=== PATIENT | female | born 1975 | race Caucasian/White ===

== ENCOUNTER 2017-07-26 18:46 | Inpatient (IN) | payer BC ==
[~2017-07-26] VITALS: Ht 182.9 cm; Wt 76.2 kg
[2017-07-26] MEDS ORDERED: IV NORMAL SALINE 1000ML BAG 1,000 ML IV SCH (19:19)
[2017-07-26 19:27] LABS: BASO # 0.1 x10^3/uL (0.0-0.2); BASO % 1 % (0-3); EOS % 1 % (0-3); HEMATOCRIT 52.1 % (36.0-47.0); HEMOGLOBIN 17.9 g/dL (12.0-15.5); LYMPH # 3.4 x10^3/uL (1.0-4.8); LYMPH % 31 % (24-48); MEAN CORPUSCULAR HEMOGLOBIN 30 pg (25-35); MEAN CORPUSCULAR HGB CONC 34 g/dL (31-37); MEAN CORPUSCULAR VOLUME 87 fL (79-100); MONO % 7 % (0-9); NEUT % 60 % (31-73); PLATELET COUNT 337 x10^3/uL (140-400); RED BLOOD COUNT 5.98 x10^6/uL (3.50-5.40); RED CELL DISTRIBUTION WIDTH 12.8 % (11.5-14.5); WHITE BLOOD COUNT 10.9 x10^3/uL (4.0-11.0)
[2017-07-26] MEDS ORDERED: 0.9 % SODIUM CHLORIDE 10 ML DISP.SYRIN. IV PRN (19:30)
[2017-07-26] MEDS ORDERED: FAMOTIDINE 20 MG/2 ML VIAL IVP ONE (19:30)
--- NOTE | 2017-07-26 19:32 | PHYS DOC ---
Past Medical History Past Medical History: Diabetes-Type II Past Surgical History: Cholecystectomy, Other Additional Past Surgical Histo: RIGHT FOOT, D&C Smoking: Cigarettes, Quit Less Than 1 Year Alcohol Use: Occasionally Drug Use: None Adult General Chief Complaint Chief Complaint: ABDOMINAL PAIN [facility] HPI She Is a pleasant 42-year-old otherwise healthy female with a history of type 1 diabetes on no medications because she cannot afford them presents with nonbilious nonbloody emesis going on for last 2-3 days. With progressive abdominal pain epigastric region with no radiation to the back over the last 2 days. She denies any direct trauma, denies any black tarry stools or black emesis. Patient says it was bile initially but now is going dark and brown. Patient denies any sick contacts she has had recent antibiotics in the last 6 weeks. She was seen at another hospital facility and diagnosed with acute cast denies no placed on 2 antibiotics for the symptoms. Since that she is also had a CAT scan that demonstrated "" gastroparesis. Patient denies being , patient has not no UTI symptoms, or vaginal bleeding or discharge. She further denies any history of sexually transmitted diseases. Patient's pain is a moderate 8 of 10 at this time with no relation to the back or lower abdomen. She denies any shortness of breath, fevers, chills, cough. Differential diagnosis on arrival Acute pancreatitis. Appendicitis. Acute hepatitis. Peptic ulcer disease. Nonulcer dyspepsia. Irritable bowel disease. Functional gallbladder disorder. Sphincter of Oddi dysfunction. Diseases of the right kidney. Right-sided pneumonia. Jmgs-Dcwm-Vvcujp syndrome Subhepatic or intraabdominal abscess. Perforated viscus. Cardiac ischemia. Black spider envenomation UTI, pyonephritis, kidney stone, abdominal aneurysm, Review of Systems Review of Systems Constitutional: Denies fever or chills [] Eyes: Denies change in visual acuity, redness, or eye pain [] HENT: Denies nasal congestion or sore throat [] Respiratory: Denies cough or shortness of breath [] Cardiovascular: No additional information not addressed in HPI [] GI: He has had significant abdominal pain with nausea and vomiting but no bloody stools or diarrhea. : Denies dysuria or hematuria [] Musculoskeletal: Denies back pain or joint pain [] Integument: Denies rash or skin lesions [] Neurologic: Denies headache, focal weakness or sensory changes [] Endocrine: Denies polyuria or polydipsia [] All other systems were reviewed and found to be within normal limits, except as documented in this note. Allergies Allergies Allergies Coded Allergies Type Severity Reaction Last Updated Verified hydrocodone Allergy Intermediate 07/26/17 Yes iodine Allergy Intermediate 07/26/17 Yes Physical Exam Physical Exam Vital signs recorded the chart patient noted to be tachycardic and hypertensive. Constitutional: Well developed, well nourished, and is pale she is not diaphoretic she is mildly tachypnea and very anxious she is nontoxic but uncomfortable HENT: Normocephalic, atraumatic, bilateral external ears normal, oropharynx dry mucous membranes no oral exudates, nose normal. [] Eyes: PERRLA, EOMI, conjunctiva normal, no discharge. [] Neck: Normal range of motion, no tenderness, supple, no stridor. [] Cardiovascular: Rate is elevated, no murmurs, rubs or rubs, Lungs & Thorax: Bilateral breath sounds clear to auscultation [] Abdomen: Increased bowel sounds soft mild tenderness to palpation in the epigastric region with no masses no pulsatile masses no Chew's or McBurney's point tenderness palpation agree Sandra sign[] Skin: Warm, dry, no erythema, no rash. [] Back: No tenderness, no CVA tenderness. [] Extremities: No tenderness, no cyanosis, no clubbing, ROM intact, no edema. [] Neurologic: Alert and oriented X 3, normal motor function, normal sensory function, no focal deficits noted. [] Psychologic: Seems somewhat anxious admission seemed to be intact. Current Patient Data Vital Signs Vital Signs Date Time Temp Pulse Resp B/P (MAP) Pulse Ox O2 Delivery O2 Flow Rate FiO2 07/26/17 19:02 97.9 106 20 193/82 (119) 99 Room Air 97.9 Lab Values Laboratory Tests Test 07/26/17 19:13 Glucose (Fingerstick) 194 mg/dL (70-99) H EKG EKG [] Radiology/Procedures Radiology/Procedures [] Course & Med Decision Making Course & Med Decision Making Pertinent Labs and Imaging studies reviewed. (See chart for details) [] Dragon Disclaimer Dragon Disclaimer This electronic medical record was generated, in whole or in part, using a voice recognition dictation system. BROVONT,DOTTIE A MD Jul 26, 2017 19:32
[2017-07-26 19:47] LABS: CALCIUM 9.3 mg/dL (8.5-10.1); CREATININE 0.5 mg/dL (0.6-1.0); GFR 135.3; POTASSIUM 3.4 mmol/L (3.5-5.1)
[2017-07-26 19:52] LABS: ALBUMIN 4.4 g/dL (3.4-5.0); ALBUMIN/GLOBULIN RATIO 1.2 (1.0-1.7); TOTAL BILIRUBIN 3.9 mg/dL (0.2-1.0)
[2017-07-26] MEDS: MORPHINE SULFATE 4 MG/ML DISP.SYRIN. IV/SQ PRN (19:56)
[2017-07-26 20:00] LABS: CREATINE KINASE 25 U/L (26-192)
[2017-07-26 20:01] LABS: CKMB MASS < 0.5 ng/mL (0.0-3.6)
[2017-07-26 20:32] LABS: BILIRUBIN,URINE SMALL (NEG); GLUCOSE,URINE 250 mg/dL (NEG); NITRITE,URINE NEGATIVE (NEG); PROTEIN,URINE 100 mg/dL (NEG-TRACE)
[2017-07-26 20:40] LABS: BACTERIA,URINE MODERATE /HPF (0-FEW); SQUAMOUS EPITHELIAL CELL,UR MANY /LPF
[2017-07-26] MEDS ORDERED: HYDROmorphone 2 MG/ML VIAL IV ONE (20:45)
[2017-07-26] MEDS ORDERED: ONDANSETRON PF 4 MG/2 ML VIAL. IV ONE (20:45)
--- NOTE | 2017-07-26 21:38 | RAD ---
CT abdomen and pelvis without contrast 07/26/2017 CLINICAL INDICATION: Vomiting and generalized abdominal pain. COMPARISON: None. TECHNIQUE: Multiple CT images of the abdomen and pelvis were obtained without contrast. *One or more of the following individualized dose reduction techniques were utilized for this examination: 1. Automated exposure control. 2. Adjustment of the mA and/or kV according to patient size. 3. Use of iterative reconstruction technique. FINDINGS: Heart size is normal. The visualized lung bases are clear. Evaluation of the solid abdominal pelvic viscera, lymphadenopathy and vasculature is limited in the absence of intravenous contrast. Unenhanced contours of the liver, spleen, adrenal glands, pancreas and kidneys are grossly unremarkable apart from a 2 mm nonobstructive calculus in the inferior pole left kidney. Prior cholecystectomy. Abdominal aorta is normal in caliber. Small and large bowel loops are normal in caliber without obstruction. Moderate zaman colonic diverticulosis without diverticulitis. Appendix is normal in appearance. No abdominal free fluid. No pneumoperitoneum. Urinary bladder and uterus are unremarkable. No pelvic free fluid. There are no destructive osseous lesions. IMPRESSION: 1. No noncontrast evidence of acute abdominopelvic process, bowel obstruction or ascites. 2. Pancolonic diverticulosis without diverticulitis. 3. Tiny, 2 mm nonobstructive left renal calculus. Electronically signed by: Nam Bai MD (07/26/2017 9:34 PM) [facility]
[2017-07-26] MEDS ORDERED: MORPHINE SULFATE 2 MG/ML DISP.SYRIN. IV PRN (22:00)
[2017-07-26] MEDS ORDERED: DEXTROSE 50% 25 GM / 50ML DISP.SYRIN. IV PRN (22:00)
[2017-07-26] MEDS ORDERED: IV NORMAL SALINE 1000ML BAG 1,000 ML IV ONE ×2 (22:00)
[2017-07-27] VITALS (7 sets, daily range): BP systolic 104–131; BP diastolic 60–69
[2017-07-27] MEDS: ONDANSETRON PF 4 MG/2 ML VIAL. IV PRN ×3 (00:42→19:30)
[2017-07-27 04:57] LABS: CALCIUM 8.2 mg/dL (8.5-10.1); CREATININE 0.4 mg/dL (0.6-1.0)
--- NOTE | 2017-07-27 07:06 | EKG ---
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
[2017-07-27] MEDS: INSULIN ASPART 300 UNITS/3 ML INSULN.PEN SQ SCH ×3 (08:00→17:54)
[2017-07-27] MEDS: MORPHINE SULFATE 4 MG/ML DISP.SYRIN. IV/SQ PRN (10:19)
[2017-07-27] MEDS ORDERED: oxyCODONE IR 5 MG TABLET PO PRN (18:00)
--- NOTE | 2017-07-27 18:18 | HP ---
ADMIT DATE: 07/26/2017 CHIEF COMPLAINT: Nausea, vomiting, DKA. HISTORY OF PRESENT ILLNESS: The patient is a 42-year-old woman with longstanding history of diabetes mellitus, but unable to afford her medications and off insulin for the past 2 years, who presented to the Emergency Room with nausea, vomiting and epigastric pain. She relates that her GI symptoms actually started even before Halloween. At that time, she actually ended up in [facility] with nausea, retching and abdominal pain. She was told at that time she had some type of GI infection and was given antibiotics. Recommendations were for her to be transported to [facility] for care, but patient declined due to cost of the ambulance ride. She states she did fairly well in the interim, but then got worse in the past week once again with nausea, retching, being completely unable to keep anything down including liquids. She denies any fevers, chills, has abdominal pain in the epigastric area, sharp and stabbing type. Vomitus initially was food, then bilious and later coffee brown suspicious for bleed. In the Emergency Room, she was found with DKA and admitted for further management. PAST MEDICAL HISTORY: Diabetes mellitus, diabetic neuropathy, cholecystectomy, status post D and C. FAMILY HISTORY: No other members with diabetes. SOCIAL HISTORY: Lives with her children. 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 Quit smoking in April of this year. Drinks alcohol only occasionally. Denies any drug use. ALLERGIES: HYDROCODONE, IODINE. MEDICATIONS: None at home. REVIEW OF SYSTEMS: Positive as per HPI. She denies any symptoms in rest of organ system review. PHYSICAL EXAMINATION: VITAL SIGNS: From today show a blood pressure of 109/61, heart rate of 84, respiratory rate at 18. She is afebrile. GENERAL: This is a 42-year-old well-nourished woman, alert and oriented, in no acute distress. HEENT: Shows no scleral icterus. NECK: Supple. LUNGS: Clear to auscultation bilaterally. HEART: Has regular rate and rhythm. ABDOMEN: Has positive bowel sounds, tenderness to palpation in the epigastric area. EXTREMITIES: Show no edema. SKIN: Warm, soft and dry without any rash. LABORATORY DATA: CBC with a WBC of 10.9, hemoglobin 17.9 and platelets of 337. Chemistries with BUN and creatinine of 12 and 0.4. Normal electrolytes, glucose at 171. Ketones in urine positive at greater than 80. IMAGING: CT of the abdomen and pelvis showed noncontrast evidence of acute abdominopelvic process, bowel obstruction or ascites. ASSESSMENT AND PLAN: The patient is a 42-year-old uncontrolled diabetic of insulin x 2 years, who now presents with what I suspect is an additional complication of her diabetes, gastroparesis. I discussed this with her. She apparently had been told this at her previous visit in [facility]. Difficult part, however, will be trying to find medications for her that are relatively cheap and effective. Although, she does have insurance through her job, copays are difficult to afford on her budget. For now, symptoms appear to be controlled. We will monitor her labs. Insulin currently fairly well controlled on sliding scale. The patient appears to be polycythemic. Suspect this is secondary to possibly dehydration. We will monitor her CBC. Risk stratified for other risk factors for cardiovascular disease as well with lipid profile. Blood pressure and heart rate appear well controlled. DAIN MAHONEY MD DR: MARIELLA/jean JOB#: [id number] / [id number] RAMONE
[2017-07-27] MEDS ORDERED: ONDANSETRON PF 4 MG/2 ML VIAL. IV PRN (19:45)
[2017-07-27] MEDS ORDERED: INSULIN DETEMIR 300 UNITS/3 ML INSULN.PEN. SQ SCH (21:00)
[2017-07-28 03:00] VITALS: BP 121/68
[2017-07-28 04:19] LABS: BASO % 1 % (0-3); EOS % 2 % (0-3); HEMATOCRIT 42.1 % (36.0-47.0); HEMOGLOBIN 14.7 g/dL (12.0-15.5); LYMPH # 3.2 x10^3/uL (1.0-4.8); LYMPH % 49 % (24-48); MEAN CORPUSCULAR HEMOGLOBIN 30 pg (25-35); MEAN CORPUSCULAR HGB CONC 35 g/dL (31-37); MEAN CORPUSCULAR VOLUME 86 fL (79-100); MONO % 7 % (0-9); NEUT % 41 % (31-73); PLATELET COUNT 233 x10^3/uL (140-400); RED BLOOD COUNT 4.89 x10^6/uL (3.50-5.40); RED CELL DISTRIBUTION WIDTH 12.7 % (11.5-14.5); WHITE BLOOD COUNT 6.5 x10^3/uL (4.0-11.0)
[2017-07-28 04:39] LABS: CALCIUM 8.1 mg/dL (8.5-10.1); CREATININE 0.3 mg/dL (0.6-1.0)
[2017-07-28 04:42] LABS: POTASSIUM 2.7 mmol/L (3.5-5.1)
[2017-07-28 07:00] VITALS: BP 114/77
[2017-07-28] MEDS ORDERED: POTASSIUM CHLORIDE 20 MEQ TABLET.ER. PO ONE ×2 (08:00→12:00)
[2017-07-28] MEDS: INSULIN ASPART 300 UNITS/3 ML INSULN.PEN SQ SCH ×2 (08:38→12:26)
[2017-07-28 11:00] VITALS: BP 119/76
[2017-07-28] MEDS ORDERED: INSU100I27 SQ (12:36)
[2017-07-28] MEDS ORDERED: LOVA20TA2 PO (13:09)
[2017-07-28] MEDS ORDERED: ASPI-482 PO (13:09)
[2017-07-28] MEDS ORDERED: LISI-338 PO (13:09)
[2017-07-28] MEDS ORDERED: INSU100I17 SQ (13:09)
[2017-07-28 15:00] VITALS: BP 131/79
[2017-07-28] MEDS ORDERED: INSULIN ASPART 300 UNITS/3 ML INSULN.PEN SQ SCH (17:00)
--- NOTE | 2017-07-28 22:58 | DS ---
DATE OF DISCHARGE: 07/28/2017 CHIEF COMPLAINT: Nausea, vomiting, DKA. HOSPITAL COURSE: The patient is a 42-year-old woman with longstanding history of diabetes mellitus, which she neglected over the past year citing financial constraints. She presented with a 4-week history of nausea and vomiting and was found in DKA. She was given insulin to control her blood sugar and with infusions, her acidosis resolved fairly quickly. She was started on regular as well as long-acting insulin, which was adjusted during her hospitalization. She was discharged on same regimen with instructions for sliding scale for self-administration. To control other risk factors associated with diabetes, she was given prescriptions for lisinopril as well as lovastatin and baby aspirin. Because of her financial constraints, medications were chosen to allow minimum copay. PHYSICAL EXAMINATION: VITAL SIGNS: Show a blood pressure of 131/79, heart rate of 90, respiratory rate at 20, no fevers. GENERAL: Alert and oriented, no acute distress. LUNGS: Clear. HEART: Regular rate and rhythm. ABDOMEN: Positive bowel sounds, soft, nontender. EXTREMITIES: No edema. DISCHARGE DIAGNOSES: Diabetic ketoacidosis, possible gastroparesis. DISCHARGE DISPOSITION: To home. DISCHARGE CONDITION: Improved. DISCHARGE MEDICATIONS: Please refer to MAR. DISCHARGE INSTRUCTIONS: The patient should follow up with PCP SADIE for further monitoring of blood sugars and other complications of diabetes. DAIN MAHONEY MD DR: MARIELLA/nts JOB#: [id number] / [id number] RAMONE
== END 2017-07-28 16:00 | disposition home or self-care (01) | DRG 637 ==
LOC: ER 18:46 → 6 SOUTH 21:50
PROVIDERS: ADMIT Internal Medicine; ATTEND Internal Medicine
DX: E10.10 Type 1 diabetes mellitus with ketoacidosis without coma (principal); J18.9 Pneumonia, unspecified organism; K85.90 Acute pancreatitis without necrosis or infection, unspecified; K31.84 Gastroparesis; E10.43 Type 1 diabetes mellitus with diabetic autonomic (poly)neuropathy; E24.9 Cushing's syndrome, unspecified; B17.9 Acute viral hepatitis, unspecified; N39.0 Urinary tract infection, site not specified; I25.9 Chronic ischemic heart disease, unspecified; I71.4 Abdominal aortic aneurysm, without rupture; K27.9 Peptic ulcer, site unspecified, unspecified as acute or chronic, without hemorrhage or perforation; K37 Unspecified appendicitis; K57.30 Diverticulosis of large intestine without perforation or abscess without bleeding; K58.9 Irritable bowel syndrome, unspecified; K82.9 Disease of gallbladder, unspecified; N20.0 Calculus of kidney; Z87.891 Personal history of nicotine dependence; Z79.4 Long term (current) use of insulin; Z90.49 Acquired absence of other specified parts of digestive tract; Z88.5 Allergy status to narcotic agent; Z91.041 Radiographic dye allergy status
CPT/HCPCS: 36415; 74176; 80048; 80053; 81001; 81025; 82553; 82962; 83690; 84484; 85025; 87086; 93005; J1170; J1815; J2270; J2405; J7030; S0028

== ENCOUNTER 2020-01-20 01:18 | Inpatient (IN) | payer BC ==
[~2020-01-20] VITALS: Ht 182.9 cm; Wt 84.3 kg
[~2020-01-20 01:18] MED LIST: ASPI-482 PO; INSU100I17 SQ; INSU100I27 SQ; LISI-338 PO; LOVA20TA2 PO
[2020-01-20 03:11] VITALS: BP 154/84
[2020-01-20 07:00] VITALS: BP 146/72
[2020-01-20] MEDS ORDERED: DEXTROSE 50% 25 GM / 50ML DISP.SYRIN. IV PRN (09:00)
[2020-01-20] MEDS ORDERED: ENOXAPARIN 40 MG/0.4 ML SYRINGE. SQ SCH (09:00)
[2020-01-20] MEDS ORDERED: guaiFENesin ORAL 200 MG/10 ML LIQUID. PO PRN (09:00)
[2020-01-20] MEDS ORDERED: ACETAMINOPHEN 325 MG TABLET. PO PRN (09:00)
[2020-01-20] MEDS ORDERED: ALBUTEROL SULFATE 2.5 MG/3 ML NEBU. NEB PRN (09:00)
[2020-01-20] MEDS ORDERED: LORazepam 0.5 MG TABLET PO PRN (09:00)
[2020-01-20] MEDS ORDERED: ZOLPIDEM 5 MG TABLET. PO PRN (09:00)
[2020-01-20] MEDS ORDERED: ONDANSETRON PF 4 MG/2 ML VIAL. IV PRN (09:00)
--- NOTE | 2020-01-20 09:04 | PDOC1 ---
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 Patient apparently last month when there was a huge tried in her [place] [facility] she had to work a period of 24 hours and she was on her feet almost all the time as she relates. Patient at the end of that shift had what she thought was a blister and she went to the local wound care to have it examined. Patient noticed that it was can like a "blood blister" and has been under the care of the local primary care physician and wound care clinic. She has received antibiotics which she does not remember at the present time except for name that she relates being Zyvox. As per ER physicians notes that have been reviewed from the referring institution she has also been on Levaquin. Yesterday apparently the patient was told by the wound care clinic that she had an infection in her bone and as per ER notes documentation states that MRI results showed multifocal osteomyelitis and also widening appearance of the Lisfranc interval as well as probable abscess between the first and second metatarsals. Patient was sent to our institution for orth opedic or surgical evaluation and infectious disease consultation as well. At the time of my note the patient is in no acute distress the patient denies any fever chills no cold-like symptoms no history of viral-like symptoms either. Patient denies chest pain palpitations no shortness of breath no abdominal pain no nausea vomiting diarrhea no urinary symptoms she does relate having worse edema over the last couple days over the affected area but since she has been in the hospital this has improved. According to the notes she received Zosyn in the outside facility. Laboratory data from outside facility was also reviewed with normal white blood cell count and normal renal function. Report of MRI unfortunately is not available with the transfer paperwork C-reactive protein in the outside facility was 1.5 ESR was not tested although on the paperwork it was ordered but is not available for review plan of care has been explained detail to the patient and all of her concerns have been addressed to the best of my abilities. Nursing staff at bedside Past Medical History Cardiovascular: HTN Endocrine: Diabetes Past Surgical History Past Surgical History: No pertinent history Family History Family History: Other (Reviewed and found negative and noncontributory to the p resent) Allergies Allergies Allergies Coded Allergies Type Severity Reaction Last Updated Verified hydrocodone Allergy Intermediate Morphine,Oxycodone OK 07/27/17 Yes iodine Allergy Intermediate 07/26/17 Yes ROS Review of System CONSTITUTIONAL: No fever or chills EYES: No recent changes SKIN: No rash or itching CARDIOVASCULAR: No chest pain, syncope, palpitations, or edema RESPIRATORY: No SOB or cough GASTROINTESTINAL: No nausea, vomiting or abdominal pain NEUROLOGICAL: No headaches or weakness ENDOCRINE: No cold or heat intolerance GENITOURINARY: No urgency or frequency of urination MUSCULOSKELETAL: No back pain or joint pain LYMPHATICS: No enlarged lymph nodes PSYCHIATRIC: No anxiety or depression Physical Exam Physical Exam GEN.: No apparent distress. Alert and oriented. HEENT: Head is normocephalic, atraumatic NECK: Supple. LUNGS: Clear to auscultation. HEART: RRR, S1, S2 present. Peripheral pulses intact ABDOMEN: Soft, nontender. Positive bowel sounds. EXTREMITIES: Without any cyanosis. Patient has an area of induration over the right lateral aspect there is evidence of callus as well on multiple plantar sites no drainage or open wounds are evident peripheral pulses present NEUROLOGIC: Normal speech, normal tone PSYCHIATRIC: Normal affect, normal mood. SKIN: No ulcerations Vitals Vitals Vital Signs Date Time Temp Pulse Resp B/P (MAP) Pulse Ox O2 Delivery O2 Flow Rate FiO2 01/20/20 07:00 98.1 91 16 146/72 (96) 98 Room Air 98.1 VTE Prophylaxis Ordered VTE Prophylaxis Devices: No VTE Pharmacological Prophylaxi: Yes Assessment/Plan Assessment/Plan Right foot osteomyelitis as per ER documentation Possible right foot abscess Diabetes mellitus type 2 insulin required Essential hypertension currently well controlled Plan Consult orthopedic surgery Consult ID We will reorder laboratory data Blood cultures Resume home medication Pain management DVT prophylaxis with Lovenox Further recommendations based on the clinical course Justicifation of Admission Dx: Justifications for Admission: Justification of Admission Dx: Yes Comments: Osteomyelitis requiring surgical evaluation and ID consultation due to outpatient therapy failure GLADYS KINNEY MD Jan 20, 2020 09:04
[2020-01-20 09:28] LABS: BASO # 0.1 x10^3/uL (0.0-0.2); BASO % 1 % (0-3); EOS # 0.1 x10^3/uL (0.0-0.7); EOS % 2 % (0-3); HEMATOCRIT 38.3 % (36.0-47.0); HEMOGLOBIN 13.5 g/dL (12.0-15.5); LYMPH # 1.9 x10^3/uL (1.0-4.8); LYMPH % 34 % (24-48); MEAN CORPUSCULAR HEMOGLOBIN 30 pg (25-35); MEAN CORPUSCULAR HGB CONC 35 g/dL (31-37); MEAN CORPUSCULAR VOLUME 86 fL (79-100); MONO # 0.3 x10^3/uL (0.0-1.1); MONO % 6 % (0-9); NEUT # 3.2 x10^3/uL (1.8-7.7); NEUT % 57 % (31-73); PLATELET COUNT 244 x10^3/uL (140-400); RED BLOOD COUNT 4.44 x10^6/uL (3.50-5.40); RED CELL DISTRIBUTION WIDTH 12.4 % (11.5-14.5); WHITE BLOOD COUNT 5.6 x10^3/uL (4.0-11.0)
[2020-01-20 09:40] LABS: ALBUMIN 3.2 g/dL (3.4-5.0); ALBUMIN/GLOBULIN RATIO 0.9 (1.0-1.7); C-REACTIVE PROTEIN 1.6 mg/L (0-3.3); CALCIUM 8.1 mg/dL (8.5-10.1); CREATININE 0.6 mg/dL (0.6-1.0); GFR 108.6; POTASSIUM 4.2 mmol/L (3.5-5.1); TOTAL BILIRUBIN 0.7 mg/dL (0.2-1.0); TOTAL PROTEIN 6.7 g/dL (6.4-8.2)
--- NOTE | 2020-01-20 10:34 | PDOC ---
Infectious Disease Note Vital Sign Vital Signs Vital Signs Date Time Temp Pulse Resp B/P (MAP) Pulse Ox O2 Delivery O2 Flow Rate FiO2 01/20/20 07:00 98.1 91 16 146/72 (96) 98 Room Air 98.1 Labs Lab Laboratory Tests Test 01/20/20 09:10 White Blood Count 5.6 x10^3/uL (4.0-11.0) Red Blood Count 4.44 x10^6/uL (3.50-5.40) Hemoglobin 13.5 g/dL (12.0-15.5) Hematocrit 38.3 % (36.0-47.0) Mean Corpuscular Volume 86 fL (79-100) Mean Corpuscular Hemoglobin 30 pg (25-35) Mean Corpuscular Hemoglobin Concent 35 g/dL (31-37) Red Cell Distribution Width 12.4 % (11.5-14.5) Platelet Count 244 x10^3/uL (140-400) Neutrophils (%) (Auto) 57 % (31-73) Lymphocytes (%) (Auto) 34 % (24-48) Monocytes (%) (Auto) 6 % (0-9) Eosinophils (%) (Auto) 2 % (0-3) Basophils (%) (Auto) 1 % (0-3) Neutrophils # (Auto) 3.2 x10^3/uL (1.8-7.7) Lymphocytes # (Auto) 1.9 x10^3/uL (1.0-4.8) Monocytes # (Auto) 0.3 x10^3/uL (0.0-1.1) Eosinophils # (Auto) 0.1 x10^3/uL (0.0-0.7) Basophils # (Auto) 0.1 x10^3/uL (0.0-0.2) Sodium Level 138 mmol/L (136-145) Potassium Level 4.2 mmol/L (3.5-5.1) Chloride Level 101 mmol/L (98-107) Carbon Dioxide Level 31 mmol/L (21-32) Anion Gap 6 (6-14) Blood Urea Nitrogen 14 mg/dL (7-20) Creatinine 0.6 mg/dL (0.6-1.0) Estimated GFR (Cockcroft-Gault) 108.6 BUN/Creatinine Ratio 23 (6-20) Glucose Level 226 mg/dL (70-99) Calcium Level 8.1 mg/dL (8.5-10.1) Total Bilirubin 0.7 mg/dL (0.2-1.0) Aspartate Amino Transf (AST/SGOT) 11 U/L (15-37) Alanine Aminotransferase (ALT/SGPT) 29 U/L (14-59) Alkaline Phosphatase 83 U/L (46-116) Creatine Kinase 33 U/L (26-192) C-Reactive Protein, Quantitative 1.6 mg/L (0-3.3) Total Protein 6.7 g/dL (6.4-8.2) Albumin 3.2 g/dL (3.4-5.0) Albumin/Globulin Ratio 0.9 (1.0-1.7) Objective Assessment pt seen, consult dictated Plan Plan of Care / MIKHAIL OSUNA MD Jan 20, 2020 10:34
[2020-01-20 11:00] VITALS: BP 132/75
--- NOTE | 2020-01-20 11:05 | NUR ---
SS following for discharge planning. SS reviewed pt chart and discussed with pt's RN. Pt is from home and is currently on room air. Dr. Galeana wrote script for IV Daptomycin and IV Zosyn at home. SS phoned and faxed script and referral to [facility], ; fax [phone]. PICC line ordered. Nurse navigator to meet with pt to discuss home healthcare services. SS will continue to follow for discharge planning.
--- NOTE | 2020-01-20 11:30 | CONS ---
DATE OF CONSULTATION: 01/20/2020 REQUESTING PHYSICIAN: Jason Robert MD. REASON FOR CONSULTATION: Osteomyelitis of the right foot. HISTORY OF PRESENT ILLNESS: This is a 44-year-old female who was struggling with this foot problem since 11/26. The patient has had callus in right big toe area and she apparently at present worked hard for a long time one day and she developed a blood blister. The patient was seen in urgent care. The patient subsequently was put on antibiotics. The patient in fact had multiple visits to her primary care, initially was given Rocephin shot and then oral antibiotics, did not work for the whole foot which was swollen, she says at least 2-3 size of the normal. The patient then was put on IV vancomycin for couple of weeks or so and it apparently did not work, then they changed to Zyvox. Although the swelling improved, she has had fever and occasional sweats, she says. The patient eventually went [facility] where the blister was taken out and callus was cleaned out and subsequently she got MRI, which in fact showed there are multiple areas of osteomyelitis in the mid foot area and there is abscess between the second and third toe area. The patient denies any nausea, vomiting, diarrhea, chest pain, shortness of breath, abdominal pain, urinary symptoms or bowel symptoms. PAST MEDICAL HISTORY: Positive for diabetes mellitus for years. The patient has had Christine's neuroma surgery done on the right foot in the past. SOCIAL HISTORY: Negative for smoking, alcohol or drug use. ALLERGIES: No known drug allergies. CURRENT MEDICATIONS: Reviewed. The patient is not on any antibiotics. REVIEW OF SYSTEMS: As per HPI, all other systems reviewed and are negative. PHYSICAL EXAMINATION: GENERAL: Alert and oriented female, not in any distress. VITAL SIGNS: Stable, afebrile. HEENT: NAD. NECK: Supple, no JVP, no lymphadenopathy. LUNGS: Clear. HEART: S1, S2 regular. ABDOMEN: Benign. EXTREMITIES: Her right foot is slightly swollen. The patient does have a bulge on to the medial mid foot area with some redness there and the distal big toe area has calluses that have been cleaned out. There are no other open area. Dorsalis pedis is weak palpable. NEUROLOGIC: The patient is alert, awake and appropriate. No focal neurologic deficit. LABORATORY DATA: White count is normal. BUN and creatinine is normal. Her C-reactive protein is 1.6. MRI from the imaging center report reviewed. I do not believe any foot x-ray has been done. IMPRESSION: Right foot swelling and blistering as well as a medial bulge since November with the MRI report suggesting multiple areas of osteomyelitis in the mid foot is concerning. Probably this is not infection and this is Charcot deformity, but it is very clearly stated in the MRI report that this is osteomyelitis and there is a small abscess reported that may have been either a cyst or scar tissue from before. I did discuss with the patient in very detail. I told her this may be not infection and it is Charcot deformity and it is overread. I wanted to go down and review with the radiologist if they can find the film through the cloud which I am going to try, although MRI being the best test, there is no other test I can do to prove or disprove other than taking a tissue sample. Obviously, she does not want and I do not want her to have an open area or make a wound, especially nothing may grow even if she has infection with multiple rounds of antibiotics given and clearly swelling has improved significantly to very small amount of swelling there now, so with the pros and cons after discussing with the patient, she decided that she would rather just be treated aggressively for as if she has infection, understands it may be overkill, understands also the potential side effect of the antibiotics which I discussed as well as side effect of the PICC line. With that, we will arrange for the PICC line and IV antibiotics and treat her as if she has osteomyelitis. Followups were discussed with her and periodic blood work discussed with her and we will continue to follow. I also discussed with Dr. Robert. Thank you very much, Dr. Robert, for giving me the opportunity to participate in this patient's care. MIKHAIL OSUNA MD DR: APRIL/jean JOB#: [id number] / [id number]
[2020-01-20] MEDS: INSULIN LISPRO 300 UNITS/3 ML VIAL. SQ SCH ×2 (11:44→17:37)
[2020-01-20] MEDS ORDERED: PIPERACILLIN/TAZOBACTAM 4.5 GM in IV NORMAL SALINE 100ML 100 ML IV SCH (12:00)
[2020-01-20] MEDS ORDERED: NON FORMULARY ITEM (Insulin Aspart (Novolog Flexpen) 0 UNITS) SQ SCH (12:00)
[2020-01-20] MEDS ORDERED: DAPTOmycin (GENERIC) IVPB 510 MG in IV NORMAL SALINE 50ML 50 ML IV SCH (12:00)
[2020-01-20] MEDS ORDERED: ERTA1VIA16 IJ (14:28)
[2020-01-20] MEDS ORDERED: DAPT350V IV (14:28)
--- NOTE | 2020-01-20 14:32 | PDOC3 ---
Discharge Summary Visit Information Date of Admission: Jan 20, 2020 Date of Discharge: Jan 20, 2020 Admitting Diagnosis Comment: Right foot osteomyelitis as per ER documentation Possible right foot abscess Diabetes mellitus type 2 insulin required Essential hypertension currently well controlled Final Diagnosis Right foot osteomyelitis clinically Unlikely right foot abscess, most likely Charcot deformity Diabetes mellitus type 2 insulin required Essential hypertension currently well controlled Brief Hospital Course Allergies Allergies Coded Allergies Type Severity Reaction Last Updated Verified hydrocodone Allergy Intermediate Morphine,Oxycodone OK 07/27/17 Yes iodine Allergy Intermediate 07/26/17 Yes Vital Signs Vital Signs Date Time Temp Pulse Resp B/P (MAP) Pulse Ox O2 Delivery O2 Flow Rate FiO2 01/20/20 11:00 97.6 80 17 132/75 (94) 97 Room Air 97.6 Lab Results Laboratory Tests Test 01/20/20 09:10 01/20/20 11:18 White Blood Count 5.6 x10^3/uL (4.0-11.0) Red Blood Count 4.44 x10^6/uL (3.50-5.40) Hemoglobin 13.5 g/dL (12.0-15.5) Hematocrit 38.3 % (36.0-47.0) Mean Corpuscular Volume 86 fL (79-100) Mean Corpuscular Hemoglobin 30 pg (25-35) Mean Corpuscular Hemoglobin Concent 35 g/dL (31-37) Red Cell Distribution Width 12.4 % (11.5-14.5) Platelet Count 244 x10^3/uL (140-400) Neutrophils (%) (Auto) 57 % (31-73) Lymphocytes (%) (Auto) 34 % (24-48) Monocytes (%) (Auto) 6 % (0-9) Eosinophils (%) (Auto) 2 % (0-3) Basophils (%) (Auto) 1 % (0-3) Neutrophils # (Auto) 3.2 x10^3/uL (1.8-7.7) Lymphocytes # (Auto) 1.9 x10^3/uL (1.0-4.8) Monocytes # (Auto) 0.3 x10^3/uL (0.0-1.1) Eosinophils # (Auto) 0.1 x10^3/uL (0.0-0.7) Basophils # (Auto) 0.1 x10^3/uL (0.0-0.2) Sodium Level 138 mmol/L (136-145) Potassium Level 4.2 mmol/L (3.5-5.1) Chloride Level 101 mmol/L (98-107) Carbon Dioxide Level 31 mmol/L (21-32) Anion Gap 6 (6-14) Blood Urea Nitrogen 14 mg/dL (7-20) Creatinine 0.6 mg/dL (0.6-1.0) Estimated GFR (Cockcroft-Gault) 108.6 BUN/Creatinine Ratio 23 (6-20) Glucose Level 226 mg/dL (70-99) Uric Acid 2.9 mg/dL (2.6-6.0) Calcium Level 8.1 mg/dL (8.5-10.1) Total Bilirubin 0.7 mg/dL (0.2-1.0) Aspartate Amino Transf (AST/SGOT) 11 U/L (15-37) Alanine Aminotransferase (ALT/SGPT) 29 U/L (14-59) Alkaline Phosphatase 83 U/L (46-116) Creatine Kinase 33 U/L (26-192) C-Reactive Protein, Quantitative 1.6 mg/L (0-3.3) Total Protein 6.7 g/dL (6.4-8.2) Albumin 3.2 g/dL (3.4-5.0) Albumin/Globulin Ratio 0.9 (1.0-1.7) Glucose (Fingerstick) 196 mg/dL (70-99) Laboratory Tests Test 01/20/20 09:10 01/20/20 11:18 White Blood Count 5.6 x10^3/uL (4.0-11.0) Red Blood Count 4.44 x10^6/uL (3.50-5.40) Hemoglobin 13.5 g/dL (12.0-15.5) Hematocrit 38.3 % (36.0-47.0) Mean Corpuscular Volume 86 fL (79-100) Mean Corpuscular Hemoglobin 30 pg (25-35) Mean Corpuscular Hemoglobin Concent 35 g/dL (31-37) Red Cell Distribution Width 12.4 % (11.5-14.5) Platelet Count 244 x10^3/uL (140-400) Neutrophils (%) (Auto) 57 % (31-73) Lymphocytes (%) (Auto) 34 % (24-48) Monocytes (%) (Auto) 6 % (0-9) Eosinophils (%) (Auto) 2 % (0-3) Basophils (%) (Auto) 1 % (0-3) Neutrophils # (Auto) 3.2 x10^3/uL (1.8-7.7) Lymphocytes # (Auto) 1.9 x10^3/uL (1.0-4.8) Monocytes # (Auto) 0.3 x10^3/uL (0.0-1.1) Eosinophils # (Auto) 0.1 x10^3/uL (0.0-0.7) Basophils # (Auto) 0.1 x10^3/uL (0.0-0.2) Sodium Level 138 mmol/L (136-145) Potassium Level 4.2 mmol/L (3.5-5.1) Chloride Level 101 mmol/L (98-107) Carbon Dioxide Level 31 mmol/L (21-32) Anion Gap 6 (6-14) Blood Urea Nitrogen 14 mg/dL (7-20) Creatinine 0.6 mg/dL (0.6-1.0) Estimated GFR (Cockcroft-Gault) 108.6 BUN/Creatinine Ratio 23 (6-20) Glucose Level 226 mg/dL (70-99) Uric Acid 2.9 mg/dL (2.6-6.0) Calcium Level 8.1 mg/dL (8.5-10.1) Total Bilirubin 0.7 mg/dL (0.2-1.0) Aspartate Amino Transf (AST/SGOT) 11 U/L (15-37) Alanine Aminotransferase (ALT/SGPT) 29 U/L (14-59) Alkaline Phosphatase 83 U/L (46-116) Creatine Kinase 33 U/L (26-192) C-Reactive Protein, Quantitative 1.6 mg/L (0-3.3) Total Protein 6.7 g/dL (6.4-8.2) Albumin 3.2 g/dL (3.4-5.0) Albumin/Globulin Ratio 0.9 (1.0-1.7) Glucose (Fingerstick) 196 mg/dL (70-99) Brief Hospital Course Ms. Foley is a 44 old female who presented with the above-mentioned history of present illness who had a very uneventful hospital stay. Patient was seen in consultation by ID and we discussed the case in great detail. Patient given her past medical history of diabetes most likely has a Charcot deformity and unfortunately because of the MRI read that we have in her hands she will be treated clinically as osteomyelitis. Patient does not have any area where she needs debridement at the present time since there is no breaks in the skin. Patient is hemodynamically stable and in good spirits to be discharged home. PICC line has been arranged by her infectious disease planning consultant and he has requested Invanz 1 g daily and daptomycin 6 mg/kg daily as well. Labs will be sent to his office as well for follow-up, patient will be discharged once PICC line has been placed and arrangements for outpatient infusions have been arranged as well. Physical exam Gen.: well-developed well-nourished in no apparent distress Head: Normal shape atraumatic Eyes: Pupils equal reactive to light and accommodation, normal conjunctivae and lids Ears: Normal shape Nose: Normal shape no trauma Mouth: No exudates of the back of throat no thrush no lesions Neck: Supple no JVD no carotid bruit or lymphadenopathy no thyromegaly Chest: Lungs clear to auscultation with good inspiratory effort no crackles rales or rhonchi Cardiovascular: S1-S2 regular rhythm no murmurs gallops or rubs Discharge Information Condition at Discharge: Improved Follow Up: Weeks Disposition/Orders: D/C to Home Scheduled Aspirin (Aspir 81) 81 Mg Tablet.dr, 1 TAB PO DAILY, #30 Ref 5 Prescribed by: DAIN MAHONEY MD on 07/28/17 1309 Daptomycin (Daptomycin) 350 Mg Vial, 500 MG IV DAILY for osteomyleitis for 42 Days, #60 Prescribed by: GLADYS KINNEY MD on 01/20/20 1428 Ertapenem Sodium (Invanz) 1 Gm Vial, 1 GM IJ DAILY for ostemyelitis for 42 Days, #42 Prescribed by: GLADYS KINNEY MD on 01/20/20 1428 Insulin Aspart (Novolog Flexpen) 100 Unit/1 Ml Insuln.pen, 0 UNITS SQ TIDWMEALS, #1 Prescribed by: DAIN MAHONEY MD on 07/28/17 1309 Last Action: Converted on 6/11/06 855 by GLADYS KINNEY MD Insulin Detemir (Levemir Flextouch) 100 Unit/1 Ml Insuln.pen, 20 UNITS SQ QHS, #5 Ref 5 Prescribed by: DAIN MAHONEY MD on 07/28/17 1236 Last Action: Converted on 01/20/20855 by GLADYS KINNEY MD Lovastatin (Lovastatin) 20 Mg Tablet, 1 TAB PO DAILY, #30 Ref 5 Prescribed by: DAIN MAHONEY MD on 07/28/17 1309 Last Action: Converted on 01/20/20855 by GLADYS KINNEY MD Discontinued Medications Lisinopril (Lisinopril) 5 Mg Tablet, 1 TAB PO DAILY, #30 Ref 5 Prescribed by: DAIN MAHONEY MD on 07/28/17 1309 Justicifation of Admission Dx: Justifications for Admission: Justification of Admission Dx: Yes GLADYS KINNEY MD Jan 20, 2020 14:32
--- NOTE | 2020-01-20 14:43 | NUR ---
wound care patient seen in the outpatient wound clinic by Dr. Davis on Saturday01/18/2020, patient had no open wounds at this time. Patient was having an MRI on Saturday01/18/2020 at 12:00. wound clinic reviewed MRI on Saturday01/19/[address] Davis wanted patient to come in on Saturday at 8:30am. Patient stated she was directed by her PCP to go to the ER regarding her MRI results. patient seen today and continued to have no open areas and redness has improved since visit on Saturday. ANDREW Trevino stated patient was awaiting a PICC and would be doing outpatient IV antibiotics at [facility], with possible discharge today. Notified patient that wound clinic would call her to setup her next appointment, patient v/u.
--- NOTE | 2020-01-20 14:59 | NUR ---
SS following up with discharge planning. SS received phone contact from [employer] stating that pt's IV antibiotics and supplies would be $590/day. Pt has met $330 of $3000 deductible and has met $600 out of her $6000 out of pocket gerald. SS was notified that once deductible was met cost would decrease to $118/day until out of pocket max is met. Pt informed of cost and pt [place] [facility] and faxed script and referral to Sharyn Camarillo at [facility], ; fax [phone]. [place] scheduled [place] 1300 [place] [facility] order on the chart. Pt's RN notified.
[2020-01-20 15:00] VITALS: BP 155/86
[2020-01-20] MEDS ORDERED: LIDOCAINE WITH 8.4% SOD BICARB 3 ML DISP.SYRIN. ONE (15:41)
[2020-01-20] MEDS ORDERED: LIDOCAINE WITH 8.4% SOD BICARB 3 ML DISP.SYRIN. INJ ONE (15:45)
--- NOTE | 2020-01-20 16:23 | RAD ---
Study: CR FOOT RIGHT 3V Indication: Charcot deformity. Comparison: 01/07/2020 Findings: There is again widening of the Lisfranc interval with small foci of mineralization interposed between the bases of the first and second metatarsals. The degree of widening of this interval appears worsened but this could be related to differences in patient positioning. Redemonstrated joint space narrowing across the first tarsometatarsal joint. More conspicuous osteopenia across the tarsometatarsal joints. On the lateral view more conspicuous foci of mineralization along the dorsal aspect of the cuneiforms. Plantar calcaneal spur. Unchanged focus of mineralization along the anterior margin of the tibial plafond. Soft tissue prominence along the dorsum of the foot as well as medial to the medial cuneiform. Os navicular as well as an ossicle at the tip of the medial malleolus. Chronic bony proliferation at the tip of the lateral malleolus. Impression: 1. Widened Lisfranc interval which was also present on the 01/07/2020 comparison. The degree of widening appears to have slightly worsened but this could be related to differences in patient positioning. Small foci of mineralization projecting at the Lisfranc interval as well as more conspicuous mineralization along the dorsum of the cuneiforms as seen on the lateral view. The constellation of findings could represent the sequela of trauma or be seen in the setting of Charcot arthropathy. An infectious etiology is not excluded but would be unlikely unless there are ulcerative changes in this region that would allow for seeding of joints at this location. 2. Soft tissue prominence such as along the dorsum of the foot and along the medial aspect of the midfoot. 3. Additional chronic findings as above. Electronically signed by: ROBERTO PEREZ MD (01/20/2020 4:21 PM) [id number]
--- NOTE | 2020-01-20 17:30 | NUR ---
Discharge instructions given to patient. Pt informed that wound care will be setting an appointment with her and that she has an appointment 01/21/201299 with [facility] for her IV antibiotics. Education given over discharge orders and blood sugar control. Patient verbalizes understanding.
[2020-01-20] MEDS ORDERED: INSULIN GLARGINE SYRINGE. SQ SCH (21:00)
[2020-01-20] MEDS ORDERED: NON FORMULARY ITEM (Insulin Detemir (Levemir Flextouch) 20 UNITS) SQ SCH (21:00)
[2020-01-20] MEDS ORDERED: ATORVASTATIN CALCIUM 10 MG TABLET. PO SCH (21:00)
--- NOTE | 2020-01-21 08:14 | RAD ---
Exam: Fluoroscopic and ultrasound guided right percutaneous inserted central venous catheter placement 01/21/2020 6:10 AM .Indication: Long-term IV antibiotics Technique: Informed oral and written consent were obtained. The right upper extremity was prepped and draped using sterile barrier technique. All elements of maximal sterile barrier technique including the use of a cap, mask, sterile gown, sterile gloves, large sterile sheet, appropriate hand hygiene, and 2% chlorhexidine for cutaneous antisepsis (or acceptable alternative antiseptic per current guidelines) were followed for this procedure.. Real-time ultrasound demonstrated a patent right basilic vein which was prepped and draped in usual sterile fashion. 1% lidocaine used for local anesthesia. Using real-time ultrasound guidance the access needle percutaneously punctured the selected right basilic vein. Reference ultrasound images were saved to the medical record. A guidewire was advanced through the needle to the cavoatrial junction, and a peel-away sheath placed. The catheter was cut to length and inserted through the peel-away sheath such that its tip is at the cavoatrial junction. The wire and sheath were removed, and the catheter secured in place, and a sterile dressing was applied. Catheter was found to flush and aspirate normally. No immediate complications are identified. FLUORO TIME: : 2.5 MIN DOSE AREA PRODUCT: 3 Gycm2 Impression: Ultrasound and fluoroscopically guided placement of a right upper extremity PICC line.
== END 2020-01-20 18:00 | disposition home or self-care (01) | DRG 638 ==
LOC: 6 SOUTH 01:18
PROVIDERS: ADMIT Internal Medicine; ATTEND Internal Medicine
PROC: 02HV33Z Insertion of Infusion Device into Superior Vena Cava, Percutaneous Approach (ICD-10-PCS; principal; 2020-01-20)
PROC: B5181ZA Fluoroscopy of Superior Vena Cava using Low Osmolar Contrast, Guidance (ICD-10-PCS; 2020-01-20)
PROC: B548ZZA Ultrasonography of Superior Vena Cava, Guidance (ICD-10-PCS; 2020-01-20)
DX: E11.69 Type 2 diabetes mellitus with other specified complication (principal); M86.8X7 Other osteomyelitis, ankle and foot; L02.611 Cutaneous abscess of right foot; S90.821A Blister (nonthermal), right foot, initial encounter; X58.XXXA Exposure to other specified factors, initial encounter; I10 Essential (primary) hypertension; E11.610 Type 2 diabetes mellitus with diabetic neuropathic arthropathy; Z88.5 Allergy status to narcotic agent; Z91.041 Radiographic dye allergy status; Z79.4 Long term (current) use of insulin; Y93.89 Activity, other specified; Y92.89 Other specified places as the place of occurrence of the external cause; Y99.8 Other external cause status
CPT/HCPCS: 36415; 36573; 73630; 76937; 77001; 80053; 82550; 82962; 83036; 84550; 85025; 86140; 87040; 94640; C1751; C1892; J0878; J1650; J1815; J2543; G0378